=== PATIENT | female | born 1975 | race Caucasian/White ===

== ENCOUNTER 2018-10-14 12:29 | Outpatient (CLI) | payer BC ==
[2018-10-14] MEDS ORDERED: ROSU20TA2 PO (12:50)
[2018-10-14] MEDS ORDERED: LEVO75TA5 PO (12:50)
[2018-10-14] MEDS ORDERED: VARE1TAB21 PO (12:50)
== END 2018-10-14 23:59 | disposition home or self-care (01) ==
LOC: STAR 12:29
PROVIDERS: ATTEND Surgery
DX: Z02.9 Encounter for administrative examinations, unspecified (principal)

== ENCOUNTER 2018-10-18 09:44 | Day surgery (SDC) | payer BC ==
[~2018-10-18] VITALS: Ht 165.1 cm; Wt 68.7 kg
[~2018-10-18 09:44] MED LIST: BUPIVACAINE/PF-EPI 0.5% 1:200K ONE; LEVO75TA5 PO; ROSU20TA2 PO; VARE1TAB21 PO
[2018-10-18] MEDS ORDERED: LACTATED RINGERS 1,000 ML IV SCH (10:11)
[2018-10-18 10:33] VITALS: BP 111/67
[2018-10-18] MEDS ORDERED: FENTANYL PF 250 MCG/5ML ONE (10:36)
[2018-10-18] MEDS ORDERED: MIDAZOLAM 1 MG/ML, 2ML ONE (10:36)
[2018-10-18] MEDS ORDERED: HYDROmorphone 2 MG/ML, 1ML IVPush PRN (11:00)
[2018-10-18] MEDS ORDERED: OXYcodone 5 MG/5 ML ORAL.SOL UDC PO PRN (11:00)
[2018-10-18] MEDS ORDERED: ONDANSETRON 2MG/ML, 2ML IV PRN (11:00)
[2018-10-18] MEDS ORDERED: PROMETHAZINE 25 MG/ML, 1ML IV PRN ×2 (11:00→14:00)
[2018-10-18] MEDS ORDERED: MEPERIDINE/PF 25MG/0.5ML IVPush PRN (11:00)
[2018-10-18] MEDS ORDERED: ACETAMINOPHEN 325 MG TABLET PO PRN (11:00)
[2018-10-18] MEDS ORDERED: LABETALOL 5MG/ML, 20ML IV PRN (11:00)
[2018-10-18] MEDS ORDERED: hydrALAzine 20 MG/ML, 1ML IV PRN (11:00)
[2018-10-18] MEDS ORDERED: SUCCINYLCHOLINE 20 MG/ML, 10ML ONE (12:46)
[2018-10-18] MEDS ORDERED: DEXAMETHASONE 4 MG/ML, 1ML ONE ×2 (12:46→14:56)
[2018-10-18] MEDS ORDERED: KETOROLAC 30 MG/1 ML ONE (12:46)
[2018-10-18] MEDS ORDERED: PROPOFOL 10 MG/ML, 20ML ONE (12:46)
[2018-10-18] MEDS ORDERED: ONDANSETRON 2MG/ML, 2ML ONE (12:46)
[2018-10-18] MEDS ORDERED: ROCURONIUM 10MG/ML,5ML ONE (12:46)
[2018-10-18] MEDS ORDERED: FENTANYL PF 100 MCG/2ML ONE (13:17)
[2018-10-18] MEDS ORDERED: PROMETHAZINE 25 MG/ML, 1ML ONE (13:17)
[2018-10-18] MEDS: FENTANYL PF 100 MCG/2ML IV PRN ×3 (13:20→13:35)
[2018-10-18] MEDS ORDERED: MEPERIDINE/PF 25MG/ML,1ML ONE (13:49)
[2018-10-18] MEDS ORDERED: CEFOTETAN 2 GM ONE (14:56)
== END 2018-10-18 15:25 | disposition home or self-care (01) ==
LOC: OUT 09:44
PROVIDERS: ATTEND Surgery
DX: K80.10 Calculus of gallbladder with chronic cholecystitis without obstruction (principal); E78.00 Pure hypercholesterolemia, unspecified; E03.9 Hypothyroidism, unspecified; F17.210 Nicotine dependence, cigarettes, uncomplicated; Z72.89 Other problems related to lifestyle
CPT/HCPCS: 47562; 81025; 88304; J0330; J1100; J1885; J2175; J2250; J2405; J2550; J2704; J3010; J3490; J7120